=== PATIENT | female | born 1960 | race Caucasian/White ===

== ENCOUNTER 2020-03-26 17:14 | Emergency (ER) | payer BC, SELFPAY ==
--- NOTE | ~2020-03-26 | XR_ITS ---
XR ankle RT min 3V 03/26/2020 17:51 INDICATION: Right ankle pain after trauma PROCEDURE: 4 views right ankle COMPARISON: No prior studies for comparison. FINDINGS: Fracture, dislocation or subluxation is not identified. The soft tissues appear within norm al limits. No foreign bodies are identified. IMPRESSION: 1: NO ACUTE BONE OR JOINT ABNORMALITY IDENTIFIED. Reviewed, dictated and finalized at location A.
--- NOTE | 2020-03-26 17:21 | ED.GENADULT ---
HPI - General Adult General Chief complaint: Extremity Injury, Lower Stated complaint: right ankle pain Time Seen by Provider: 03/26/20 17:21 Source: patient Mode of arrival: ambulatory Limitations: no limitations History of Present Illness HPI narrative: 60-year-old female patient presents to the [facility] with complaints of right ankle pain for the past 2 days. Patient states that she was moving furniture about 2 days ago and hit the back of her right ankle onto an iron bar. Patient states since then she has been having increasing pain and noticed more swelling to the lateral side of the ankle. Patient states she has been able to walk on it and has been taking Tylenol and ibuprofen for her pain. Related Data Home Medications Medication Instructions Recorded Confirmed alprazolam 03/26/20 fluticasone propionate INTRANASAL 03/26/20 loratadine mg 03/26/20 paroxetine HCl mg PO 03/26/20 trazodone 03/26/20 Allergies Allergy/AdvReac Type Severity Reaction Status Date / Time No Known Allergies Allergy Verified 03/26/20 17:19 Review of Systems Review of Systems: Narrative: CONSTITUTIONAL: Denies fever, chills, or sweats. EYES: Denies visual changes, redness, or discharge. ENT: Denies rhinorrhea, congestion, sore throat, or otalgia. CARDIOVASCULAR: Denies chest pain, palpitations, or edema. RESPIRATORY: Denies cough or dyspnea. GASTROINTESTINAL: Denies abdominal pain, nausea, vomiting, or diarrhea. GENITOURINARY: Denies dysuria or hematuria. SKIN: Denies rash or itching. MUSCULOSKELETAL: Denies back pain, joint pain, or myalgia. Positive right ankle pain NEUROLOGIC: Denies headache, numbness, or weakness. PSYCHIATRIC: Denies anxiety or depression. PMFSH Comments At the time of my signature I agree with nursing past medical history, surgical, social, and family history. There is no relevant family history pertinent to the presenting complaint. Exam Narrative: Exam Narrative: GENERAL: Well-appearing, well-nourished, and in no acute distress. HEAD: Normocephalic, atraumatic. EYES: PERRLA and EOMI. ENT: Nares clear, no rhinorrhea or epistaxis. Mucous membranes moist. NECK: Supple. No lymphadenopathy CHEST: Clear to auscultation. No respiratory distress. HEART: Regular rate and rhythm. No murmur heard. Normal peripheral pulses. ABDOMEN: Soft, nontender, nondistended, normal active bowel sounds. EXTREMITIES: Patient is able to bear weight and ambulate without pain. The R ankle is without obvious asymmetry or deformity when compared to the L ankle. Patient can flex/extend, invert/cece. No obvious surface trauma, ecchymosis. Patient does have some swelling noted over the lateral malleolus on the right foot. Bony tenderness to palpation over the lateral malleolus. Anterior talofibular ligament, posterior talofibular ligament, calcaneofibular ligament nontender and without swelling. No tenderness or deformity of the midfootor over the proximal fifth metatarsal. Good DP and posterior tibial pulses and sensation to light touch normal. Talar tilt test is negative for ligament laxity to valgus or vargus stress. Negative anterior draw. Peroneal nerve is intact with strong eversion and plantar flexion. SKIN: Warm, dry, no rash. NEURO: No focal deficits. Alert and oriented x3. Course Reevaluation(s) Reevaluation #1: Reevaluated patient after x-ray had resulted. Discussed with her that there is no fracture noted on the x-ray. Discussed with her this is most likely a sprain from when she hit her ankle. Discussed with her we will go ahead and wrap the ankle with an Kar wrap and she can continue taking Tylenol, ibuprofen, icing and elevating it to help with the swelling. Patient verbalized understanding of this denies any other questions or concerns at this time. Copy of her x-ray results was provided to the patient today. Date: 03/26/20 Time: 18:01 Vital Signs Vital signs: Vital Signs Temperature 37.1 C 03/26/20 17:28 Puls
[2020-03-26 17:28] VITALS: BP 148/67; PULSE 78; RESP 16; TEMP 37.1; O2SAT 99
== END 2020-03-26 18:04 | disposition home or self-care (01) ==
PROVIDERS: Emergency Provider Nurse Practitioner Family; PCP Family Medicine
DX: S93.401A Sprain of unspecified ligament of right ankle, initial encounter (principal); W22.8XXA Striking against or struck by other objects, initial encounter
CPT/HCPCS: 73610; 99203; G0463

== ENCOUNTER → 2020-10-28 08:12 | Outpatient (CLI) | payer BC, SELFPAY ==
--- NOTE | ~2020-10-28 | XR_ITS ---
EXAMINATION: XR humerus LT DATE: 10/28/2020 08:28 INDICATION: Left upper arm pain post injury TECHNIQUE: Internal and externally rotated views of the left humerus were obtained. COMPARISON: None. FINDINGS: Bone alignment is normal. No fracture. Mild left acromioclavicular osteoarthritis. Joint sp amanda at the left elbow left glenohumeral joint remain normal. Soft tissues are unremarkable. Visualize d portions of the lungs are clear. IMPRESSION: 1. No acute osseous abnormality. Reviewed, dictated and finalized at location B. GER BEAUTY
== END ==
PROVIDERS: PCP Nurse Practitioner Family; Visit Provider Nurse Practitioner Family
DX: M79.602 Pain in left arm (principal)
CPT/HCPCS: 73060

== ENCOUNTER 2022-06-09 08:14 | Emergency (ER) | payer BC, SELFPAY ==
--- NOTE | 2022-06-09 08:20 | ED.BACK ---
HPI - Back Pain/Injury General Chief Complaint: Back Pain/Injury Stated Complaint: back pain Time Seen by Provider: 06/09/22 08:34 Source: patient and RN notes reviewed Mode of arrival: ambulatory Limitations: no limitations History of Present Illness HPI Narrative: 62-year-old female presents concern for bilateral low back pain that started 1 week ago after she was moving furniture. 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 She reports she has been taking ibuprofen daily, 600 mg in addition to Tylenol. However, she reports she takes ibuprofen daily regardless due to arthritis. She reports she does not feel that this medication is helping her back pain. She denies any injury, trauma, falls. She denies loss of bowel or bladder function, perianal anesthesia, weakness in any extremity, midline back pain, abdominal pain, fever, rash. MD elicited complaint: back pain Related Data Home Medications Medication Instructions Recorded Confirmed alprazolam 0.25 mg tablet 0.25 mg PO DAILY PRN Anxiety 03/26/20 06/09/22 paroxetine HCl 10 mg tablet 10 mg PO DAILY 03/26/20 06/09/22 trazodone 50 mg tablet 25 mg PO HS 03/26/20 06/09/22 Allergies Allergy/AdvReac Type Severity Reaction Status Date / Time No Known Allergies Allergy Verified 06/09/22 08:24 Review of Systems Review of Systems: CONSTITUTIONAL: Denies malaise, chills, sweats, or fever. CARDIOVASCULAR: Denies chest pain, palpitations, or edema. RESPIRATORY: Denies cough or dyspnea. GASTROINTESTINAL: Denies abdominal pain, nausea, vomiting, diarrhea, loss of bowel function GENITOURINARY: Denies dysuria, hematuria, frequency, loss of bladder function. SKIN: Denies rash or itching. MUSCULOSKELETAL: Reports bilateral low back pain NEUROLOGIC: Denies numbness, weakness, or headache. All systems reviewed & are unremarkable except as noted in HPI and below PMFSH Comments At time of signature, agree with nursing past medical, surgical, social and family history. There is no relevant family history pertinent to the presenting complaint Exam Narrative: GENERAL: Well-appearing, well-nourished, and in no acute distress. HEAD: Normocephalic, atraumatic. EYES: PERRLA and EOMI. NECK: Supple. No lymphadenopathy. CHEST: Clear to auscultation. No respiratory distress. HEART: Regular rate and rhythm. Distal pulses palpable and equal, cap refill <3 seconds ABDOMEN: Soft, nontender, nondistended, normal active bowel sounds, no palpable or pulsatile masses. No CVA tenderness MUSCULOSKELETAL: Normal range of motion and strength in all extremities; 5/5 strength with hip flexion and extension, dorsiflexion and extension, knee flexion and extension, plantar flexion and extension. Normal sensation in dermatomal distributions with sensitivity to light touch and pain. No midline back tenderness to palpation. No paraspinal tenderness. Transfers from lying to sitting to standing. SKIN: Warm, dry, no rash. No ecchymosis, erythema, open wounds to back. NEURO: No focal deficits. Alert and oriented x3. Reflexes intact. Normal gait. PSYCH: Normal mood and affect Course Course Emergency Course: Patient is aware of diagnosis, understands and agrees to treatment plan. Anticipatory guidance given. Patient agrees to follow-up as directed and is aware of reasons to seek care at the emergency department. Portions of this record may have been created with voice recognition software Level of Care: Express Care Visit Vital Signs Vital signs: Reviewed. MDM - Back Pain/Injury MDM Narrative Medical decision making narrative: No risk factors or findings concerning for epidural abscess, diskitis, vertebral osteomyelitis, cord compression, cauda equina, vertebral fracture or bone malignancy, AAA, or pyelonephritis. Patient instructed to consider further imaging and workup through their primary care physician as an outpatient if symptoms persist. Critical Care Ti
[2022-06-09 08:25] VITALS: BP 147/45; PULSE 74; RESP 16; TEMP 36.9; O2SAT 99
[2022-06-09 08:26] VITALS: BP 147/45; PULSE 74; RESP 16; TEMP 36.9; O2SAT 99
== END 2022-06-09 08:55 | disposition home or self-care (01) ==
PROVIDERS: Emergency Provider Nurse Practitioner
DX: M54.50 Low back pain, unspecified (principal); M19.90 Unspecified osteoarthritis, unspecified site; F41.9 Anxiety disorder, unspecified
CPT/HCPCS: 99213; G0463

== ENCOUNTER 2023-03-13 18:23 | Emergency (ER) | payer OTHER, SELFPAY ==
[2023-03-13 18:40] VITALS: BP 159/66; PULSE 81; RESP 16; TEMP 37; O2SAT 100
--- NOTE | 2023-03-13 18:53 | ED.URI ---
HPI - URI/Sore Throat General Chief Complaint: Upper Respiratory Infection Stated Complaint: irritated throat,headache Time Seen by Provider: 03/13/23 18:40 Source: patient and RN notes reviewed Mode of arrival: ambulatory Limitations: no limitations History of Present Illness HPI Narrative: Patient presents today complaining of sore throat, headache, nausea, fever up to 101 x2 days. Denies cough, congestion, rhinorrhea. She has been taking ibuprofen with mild relief. 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 Related Data Home Medications Medication Instructions Recorded Confirmed alprazolam 0.25 mg tablet 0.25 mg PO DAILY PRN Anxiety 03/26/20 03/13/23 paroxetine HCl 10 mg tablet 10 mg PO DAILY 03/26/20 03/13/23 trazodone 50 mg tablet 25 mg PO HS 03/26/20 03/13/23 Allergies Allergy/AdvReac Type Severity Reaction Status Date / Time No Known Allergies Allergy Verified 06/09/22 08:24 Review of Systems Review of Systems: CONSTITUTIONAL: Denies body aches, chills, or sweats.+ fever EYES: Denies visual changes, redness, or discharge. ENT: Denies rhinorrhea, congestion,or otalgia.+ sore throat CARDIOVASCULAR: Denies chest pain, palpitations, or edema. RESPIRATORY: Denies cough or dyspnea. GASTROINTESTINAL: Denies abdominal pain, vomiting, or diarrhea.+ nausea GENITOURINARY: Denies dysuria or hematuria. SKIN: Denies rash, itching, or wounds. MUSCULOSKELETAL: Denies back pain, joint pain, or myalgia. NEUROLOGIC: Denies numbness, tingling, or weakness.+ headache PSYCH: Denies depression or anxiety. PMFSH Comments At time of signature, I have reviewed and agree with nursing past medical, surgical, social and family history unless otherwise noted. Please see nursing chart for further information. There is no relevant family history pertinent to the presenting complaint Exam Narrative: GENERAL: Well-appearing, well-nourished, and in no acute distress. HEAD: Normocephalic, atraumatic. EYES: EOMI. No redness or drainage. Conjunctivae normal. ENT: Mucous membranes pink and moist. Nares clear. No rhinorrhea. TMs normal bilaterally. Throat normal. Uvula midline. NECK: Normal AROM. Supple. No lymphadenopathy. CHEST: No respiratory distress. Clear to auscultation. HEART: Regular rate and rhythm. No murmur appreciated. Normal peripheral pulses. EXTREMITIES: Normal range of motion. No edema. SKIN: Warm, dry, no rash. Capillary refill normal. Normal skin turgor. NEURO: No focal deficits. Alert and oriented x3. Gait steady. PSYCH: Normal affect. No signs of depression or anxiety. Course Course Level of Care: Express Care Visit Vital Signs Vital signs: Vital Signs Temperature 98.6 F 03/13/23 18:40 Pulse Rate 81 03/13/23 18:40 Respiratory Rate 16 03/13/23 18:40 Blood Pressure 159/66 H 03/13/23 18:40 Pulse Oximetry 100 03/13/23 18:40 Oxygen Delivery Room Air 03/13/23 18:40 Temperature 98.6 F 03/13/23 18:40 Pulse Rate 81 03/13/23 18:40 Respiratory Rate 16 03/13/23 18:40 Blood Pressure 159/66 H 03/13/23 18:40 Pulse Oximetry 100 03/13/23 18:40 Oxygen Delivery Room Air 03/13/23 18:40 Reviewed. Pt has been instructed to follow up with her PCP regarding her elevated blood pressure today. MDM - URI/Sore Throat MDM Narrative Medical decision making narrative: Rapid strep negative. Culture pending. Symptoms likely viral in etiology. No prescription medications indicated at this time. Anticipatory guidance given. Differential Diagnosis Differential diagnosis: Likely upper respiratory infection, otitis media, sinusitis, viral infection, pharyngitis and other (Strep throat) Lab Data Attestation: I reviewed the patient's lab results. Labs: Strep Screen Presumptive Negative *(Reference Range: Negative)* Critical Care Time Critical Care Time Critical
== END 2023-03-13 18:59 | disposition home or self-care (01) ==
PROVIDERS: Emergency Provider Nurse Practitioner; PCP Emergency Medicine; Referring Provider Nurse Practitioner
DX: J06.9 Acute upper respiratory infection, unspecified (principal); M19.90 Unspecified osteoarthritis, unspecified site; F41.9 Anxiety disorder, unspecified
CPT/HCPCS: 87081; 87880; 99213; G0463

== ENCOUNTER 2023-07-08 09:15 | Emergency (ER) | payer OTHER, SELFPAY ==
--- NOTE | ~2023-07-08 | XR_ITS ---
EXAMINATION: XR wrist RT min 3V DATE: 07/08/2023 10:10 INDICATION: Right wrist pain. TECHNIQUE: 4 views of right wrist were obtained. COMPARISON: Right wrist radiograph 12/12/2018 FINDINGS: Bone alignment is normal. No fracture. There is severe osteoarthritis of triscaphe joint an d mild osteoarthritis of first carpometacarpal joint. IMPRESSION: 1. Polyarticular osteoarthritis. Reviewed, dictated and finalized at location A. OGRAMMETRIST
[2023-07-08 09:27] VITALS: BP 163/53; PULSE 77; RESP 16; TEMP 37.2; O2SAT 100
--- NOTE | 2023-07-08 10:02 | ED.EXTPRO ---
HPI - Extremity Problem General Chief complaint: Extremity Problem,Nontraumatic Stated complaint: Right Hand Thumb Pain Time Seen by Provider: 07/08/23 09:56 Source: patient and RN notes reviewed Mode of arrival: ambulatory Limitations: no limitations History of Present Illness HPI Narrative: Patient presents today with a 2 week history of right thumb and wrist pain. Denies numbness or tingling in the arm or hand. Currently rates her pain 8/10, which increases with movement. She has been taking some ibuprofen with a occasionally, which does provide some relief. Patient called her PCP, but cannot be seen until July 28. 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 Related Data Home Medications Medication Instructions Recorded Confirmed alprazolam 0.25 mg tablet 0.25 mg PO DAILY PRN Anxiety 03/26/20 03/13/23 paroxetine HCl 10 mg tablet 10 mg PO DAILY 03/26/20 03/13/23 trazodone 50 mg tablet 25 mg PO HS 03/26/20 03/13/23 Allergies Allergy/AdvReac Type Severity Reaction Status Date / Time No Known Allergies Allergy Verified 07/08/23 09:38 Review of Systems Review of Systems: CONSTITUTIONAL: Denies body aches, fever, chills, or sweats. EYES: Denies visual changes, redness, or discharge. ENT: Denies rhinorrhea, congestion, sore throat, or otalgia. CARDIOVASCULAR: Denies chest pain, palpitations, or edema. RESPIRATORY: Denies cough or dyspnea. GASTROINTESTINAL: Denies abdominal pain, nausea, vomiting, or diarrhea. GENITOURINARY: Denies dysuria or hematuria. SKIN: Denies rash, itching, or wounds. MUSCULOSKELETAL: Denies back pain, or myalgia. + right wrist and hand pain NEUROLOGIC: Denies headache, numbness, tingling, or weakness. PSYCH: Denies depression or anxiety. PMFSH Comments At time of signature, I have reviewed and agree with nursing past medical, surgical, social and family history unless otherwise noted. Please see nursing chart for further information. There is no relevant family history pertinent to the presenting complaint Exam Narrative: GENERAL: Well-appearing, well-nourished, and in no acute distress. HEAD: Normocephalic, atraumatic. EYES: EOMI. No redness or drainage. Conjunctivae normal. ENT: Mucous membranes pink and moist. NECK: Normal AROM. CHEST: No respiratory distress. EXTREMITIES: Right wrist and hand: Tenderness to the thenar eminence and generally about the wrist. No edema noted. No ecchymosis or erythema noted. Pain with range of motion of the thumb. Stiffness and pain with flexion and extension of the wrist. No pain or stiffness with pronation or supination of the wrist. Distal sensation intact. Capillary refill normal. Radial pulse normal. SKIN: Warm, dry, no rash. Capillary refill normal. Normal skin turgor. NEURO: No focal deficits. Alert and oriented x3. Gait steady. PSYCH: Normal affect. No signs of depression or anxiety. Course Course Level of Care: Express Care Visit Vital Signs Vital signs: Vital Signs Temperature 98.9 F 07/08/23 09:27 Pulse Rate 77 07/08/23 09:27 Respiratory Rate 16 07/08/23 09:27 Blood Pressure 163/53 H 07/08/23 09:27 Pulse Oximetry 100 07/08/23 09:27 Oxygen Delivery Room Air 07/08/23 09:27 Temperature 98.9 F 07/08/23 09:27 Pulse Rate 77 07/08/23 09:27 Respiratory Rate 16 07/08/23 09:27 Blood Pressure 163/53 H 07/08/23 09:27 Pulse Oximetry 100 07/08/23 09:27 Oxygen Delivery Room Air 07/08/23 09:27 Reviewed MDM - Extremity (Nontraumatic) MDM Narrative Medical decision making narrative: X-ray shows severe osteoarthritis at the triscaphe joint and mild arthritis at the 1st carpometacarpal joint. Both of these joints are where patient is having severe pain. Will try a Medrol Dosepak to see if this helps improve her pain. She will follow-up with her PCP next month if symptoms do not improve. Differential Diagnosis Differential diagnosi
== END 2023-07-08 10:33 | disposition home or self-care (01) ==
PROVIDERS: Emergency Provider Nurse Practitioner; PCP Family Medicine
DX: M19.031 Primary osteoarthritis, right wrist (principal)
CPT/HCPCS: 73110; 99213; G0463

== ENCOUNTER 2024-06-15 08:42 | Emergency (ER) | payer OTHER, SELFPAY ==
[2024-06-15 08:59] VITALS: BP 147/51; PULSE 77; RESP 16; TEMP 36.2; O2SAT 99
--- NOTE | 2024-06-15 09:21 | ED.DENTAL ---
HPI - Dental/Oral General Chief complaint: Dental/Oral Stated complaint: blister on tongue Time Seen by Provider: 06/15/24 09:21 Source: patient Mode of arrival: ambulatory Limitations: no limitations History of Present Illness HPI Narrative: 64 yo F presents with c/o cotton mouth and blister to tongue for 4 days. Denies pain. 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 No hx of thrush. All systems reviewed and negative except as noted above. Related Data Home Medications Medication Instructions Recorded Confirmed alprazolam 0.25 mg tablet 0.25 mg PO DAILY PRN Anxiety 03/26/20 06/15/24 paroxetine HCl 10 mg tablet 10 mg PO DAILY 03/26/20 06/15/24 trazodone 50 mg tablet 25 mg PO HS 03/26/20 06/15/24 Allergies Allergy/AdvReac Type Severity Reaction Status Date / Time No Known Allergies Allergy Verified 06/15/24 09:14 Review of Systems Review of Systems: CONSTITUTIONAL: Denies fever, chills, or sweats. EYES: Denies visual changes, redness, or discharge. ENT: Denies rhinorrhea, congestion, sore throat, or otalgia. Reports cotton mouth and blister to tongue CARDIOVASCULAR: Denies chest pain, palpitations, or edema. RESPIRATORY: Denies cough or dyspnea. GASTROINTESTINAL: Denies abdominal pain, nausea, vomiting, or diarrhea. GENITOURINARY: Denies dysuria or hematuria. SKIN: Denies rash or itching. MUSCULOSKELETAL: Denies back pain, joint pain, or myalgia. NEUROLOGIC: Denies headache, numbness, or weakness. PSYCHIATRIC: Denies anxiety or depression. All other systems reviewed are negative, except as documented in HPI. PMFSH Comments At time of signature, agree with nursing past medical, surgical, social and family history. There is no relevant family history pertinent to the presenting complaint. Exam Narrative: GENERAL: This is a well-nourished, well-developed patient, in no apparent distress. HEAD: normocephalic, atraumatic. EYES: PERRL. Sclera clear/white. Vision is grossly intact. EARS: External ears normal NOSE: External nose normal MOUTH: pt has yellowish cauliflower like lesion to center of tongue, approx. 2x1cm. no other lesions noted. no erythema. normal posterior pharynx. NECK: Neck supple, non-tender without lymphadenopathy, masses or thyromegaly. CARDIOVASCULAR: Regular rate and rhythm without murmurs, gallops, or rubs. RESPIRATORY: Clear to auscultation. Breath sounds equal bilaterally. No wheezes, rales, or rhonchi. SKIN: warm, Dry, intact with no suspicious lesions or rash, good texture and turgor. NEURO: awake, alert, and oriented to person, place and time. There were no obvious focal neurologic abnormalities. EXTREMITIES: No joint tenderness, effusion, or edema noted. Course Course Level of Care: Express Care Visit Vital Signs Vital signs: Vital Signs Temperature 36.2 C L 06/15/24 08:59 Pulse Rate 77 06/15/24 08:59 Respiratory Rate 16 06/15/24 08:59 Blood Pressure 147/51 H 06/15/24 08:59 Pulse Oximetry 99 06/15/24 08:59 Oxygen Delivery Room Air 06/15/24 08:59 Temperature 36.2 C L 06/15/24 08:59 Pulse Rate 77 06/15/24 08:59 Respiratory Rate 16 06/15/24 08:59 Blood Pressure 147/51 H 06/15/24 08:59 Pulse Oximetry 99 06/15/24 08:59 Oxygen Delivery Room Air 06/15/24 08:59 reviewed MDM - Dental/Oral MDM Narrative Medical decision making narrative: will treat pt with nystatin for thrush due to tongue lesion and cotton mouth. recommend follow up with ENT due to single oral lesion and size to rule out oral cancer. Patient is aware of diagnosis, understands and agrees to treatment plan. Anticipatory guidance given. Patient agrees to follow-up as directed and is aware of reasons to seek care at the emergency department. Portions of this record may have been created with voice recognition software Discharge Plan Discharge Clinical Impression: Candidiasis of mouth, Lesion of tongue Patient Disposition: Home, Self-Ca
== END 2024-06-15 09:47 | disposition home or self-care (01) ==
PROVIDERS: Emergency Provider Nurse Practitioner Family; PCP Nurse Practitioner Family
DX: B37.0 Candidal stomatitis (principal); K14.9 Disease of tongue, unspecified; M19.90 Unspecified osteoarthritis, unspecified site; F41.9 Anxiety disorder, unspecified
CPT/HCPCS: 99213; G0463